=== PATIENT | female | born 2000 | race American Indian/Alaskan Native ===

== ENCOUNTER 2022-02-05 07:31 | Emergency (ER) | payer MEDICAID ==
[2022-02-05] MEDS ORDERED: KETOROLAC 10 MG TAB PO NR (09:29)
[2022-02-05] MEDS ORDERED: ACETAMINOPHEN W/CODEINE 300-30 MG TAB PO NR (09:30)
[2022-02-05] MEDS ORDERED: DOXYCYCLINE 100 MG CAP PO NR (09:30)
[2022-02-05 09:34] VITALS: BP 134/80
--- NOTE | 2022-02-05 10:09 | Emergency Department Report ---
- General Chief complaint: Skin/Abscess/Foreign Body Stated complaint: LT AXILLA BUMP Time Seen by Provider: 02/05/22 09:15 Source: patient Mode of arrival: Ambulatory Limitations: No Limitations - History of Present Illness Initial comments: 21-year-old black female with no past medical history presents to the emergency department for evaluation of left axillary abscess. She states that she noticed the abscess 2 days ago and it has been getting larger and more painful since then. She states that she has not had a fever and has not noticed any drainage from the area. She notes that she has had abscesses to axillary area several times over the past couple years. MD complaint: abscess/boil -: Gradual, days(s) Location: LUE (Left axillary area) Severity: severe Severity scale (0 -10): 10 Quality: aching Consistency: constant Worsens with: palpation, movement Associated symptoms: denies other symptoms Treatments Prior to Arrival: none - Related Data Previous Rx's Medication Instructions Recorded Last Taken Type Acetaminophen/Codeine [Tylenol 1 tab PO Q6H PRN #12 tab 02/05/22 Unknown Rx /Codeine # 3 tab] DOXYCYCLINE Hyclate [Vibramycin] 100 mg PO Q12HR 7 Days #14 capsule 02/05/22 Unknown Rx Naproxen [Naprosyn] 500 mg PO BID 7 Days #14 tab 02/05/22 Unknown Rx Allergies Allergy/AdvReac Type Severity Reaction Status Date / Time No Known Allergies Allergy Unverified 02/05/22 09:47 Abscess Boil HPI - HPI Chief Complaint: Skin/Abscess/Foreign Body Stated Complaint: LT AXILLA BUMP Time Seen by Provider: 02/05/22 09:15 Duration: 2 Days Location: Upper Extremity History: Yes Pain, Yes Previous History, No Fever, No Purulent Drainage, No Numbness, No Foreign Body, No Insect Bite Home Medications: Previous Rx's Medication Instructions Recorded Last Taken Type Acetaminophen/Codeine [Tylenol 1 tab PO Q6H PRN #12 tab 02/05/22 Unknown Rx /Codeine # 3 tab] DOXYCYCLINE Hyclate [Vibramycin] 100 mg PO Q12HR 7 Days #14 capsule 02/05/22 Unknown Rx Naproxen [Naprosyn] 500 mg PO BID 7 Days #14 tab 02/05/22 Unknown Rx Allergies/Adverse Reactions: Allergies Allergy/AdvReac Type Severity Reaction Status Date / Time No Known Allergies Allergy Unverified 02/05/22 09:47 ED Review of Systems ROS: Stated complaint: LT AXILLA BUMP Other details as noted in HPI Comment: All other systems reviewed and negative Constitutional: denies: chills, fever Eyes: denies: vision change ENT: denies: ear pain, congestion Respiratory: denies: cough, shortness of breath Cardiovascular: denies: chest pain Gastrointestinal: denies: abdominal pain, nausea, vomiting Musculoskeletal: denies: back pain Skin: denies: rash Neurological: denies: headache, weakness ED Past Medical Hx - Past Medical History Additional medical history: abscess - Surgical History Past Surgical History?: No - Social History Smoking Status: Never Smoker - Medications Home Medications: Home Medications Medication Instructions Recorded Confirmed Last Taken Type Acetaminophen/Codeine [Tylenol 1 tab PO Q6H PRN #12 tab 02/05/22 Unknown Rx /Codeine # 3 tab] DOXYCYCLINE Hyclate [Vibramycin] 100 mg PO Q12HR 7 Days #14 capsule 02/05/22 Unknown Rx Naproxen [Naprosyn] 500 mg PO BID 7 Days #14 tab 02/05/22 Unknown Rx ED Physical Exam - General Limitations: No Limitations General appearance: alert, in no apparent distress - Head Head exam: Present: atraumatic, normocephalic - Eye Eye exam: Present: normal appearance. Absent: conjunctival injection - Neck Neck exam: Present: normal inspection. Absent: tenderness, lymphadenopathy - Respiratory Respiratory exam: Absent: respiratory distress - Cardiovascular Cardiovascular Exam: Present: regular rate - GI/Abdominal GI/Abdominal exam: Absent: distended - Extremities Exam Extremities exam: Absent: normal inspection (Abscess 6 cm long 2 cm wide noted under left axillary area. Area is erythematous and tender to any touch. Center noted to be fluctuant but no drainage noted) - Back Exam Back exam: Present: normal inspection - Neurological Exam Neurological exam: Present: alert, oriented X3 - Psychiatric Psychiatric exam: Present: normal affect, normal mood - Skin Skin exam: Present: warm, dry, intact, normal color ED Course Vital Signs 02/05/22 02/05/22 07:35 09:30 Temperature 98.7 F 98.9 F Pulse Rate 96 H 95 H Respiratory 14 18 Rate Blood Pressure 117/80 Blood Pressure 134/80 [Left] O2 Sat by Pulse 97 100 Oximetry - I & D Left Arm Type of Procedure: Simple Site: Left axillary area Blade Size: 11 I & D Procedure: betadine prep Progress: Patient was anesthetized with 10 cc of 2% lidocaine without epinephrine then I&D performed with copious amounts of malodorous, purulent drainage returned. Area then cleaned with Betadine again and sterile dressing applied. Patient tolerated well. ED Medical Decision Making - Medical Decision Making 21-year-old black female with no past medical history presents to the emergency department for evaluation of left axillary abscess. She states that she noticed the abscess 2 days ago and it has been getting larger and more painful since then. She states that she has not had a fever and has not noticed any drainage from the area. She notes that she has had abscesses to axillary area several times over the past couple years. Physical exam significant for left axillary abscess. I&D performed per my procedure note. Patient tolerated well. He will be treated with 7-day course of doxycycline along with naproxen and Tylenol 3 to use as needed for pain. She is advised to follow-up with her primary care provider or dermatology for further evaluation and management. She is advised to return to the emergency department for any concerning symptoms. She verbalizes understanding of and agreement with plan of care. Critical care attestation.: If time is entered above; I have spent that time in minutes in the direct care of this critically ill patient, excluding procedure time. ED Disposition Clinical Impression: Abscess of left axilla Disposition: 01 HOME / SELF CARE / HOMELESS Is pt being admited?: No Does the pt Need Aspirin: No Condition: Stable Instructions: Skin Abscess, [id number], Incision and Drainage, Care After, Hidradenitis Suppurativa Additional Instructions: Take medications as prescribed. Follow-up with primary care provider or dermatology for further evaluation and management. Return to the emergency department as needed. Prescriptions: Naproxen [Naprosyn] 500 mg PO BID 7 Days #14 tab Acetaminophen/Codeine [Tylenol /Codeine # 3 tab] 1 tab PO Q6H PRN #12 tab PRN Reason: Pain , Severe (7-10) DOXYCYCLINE Hyclate [Vibramycin] 100 mg PO Q12HR 7 Days #14 capsule Referrals: ROBERT MARCANO MD [Staff Physician] - 3-5 Days SOHAIL AVENDANO MD [Staff Physician] - 3-5 Days Forms: Work/School Release Form(ED) Time of Disposition: 10:09
== END 2022-02-05 11:12 | disposition home or self-care (01) ==
LOC: ED 07:31
DX: L02.412 Cutaneous abscess of left axilla (principal)
CPT/HCPCS: 99282